=== PATIENT | male | born 1990 | race American Indian/Alaskan Native ===

== ENCOUNTER 2021-03-15 15:25 | Emergency (ER) | payer SELFPAY ==
[2021-03-15] MEDS ORDERED: KETOROLAC 60 MG/2 ML INJ IM ONE (15:37)
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
[2021-03-15 15:39] VITALS: BP 120/98
[2021-03-15 16:43] LABS: Bilirubin,Urine NEG (Negative); Blood,Urine NEG (Negative); Color,Urine Yellow (Yellow); Protein,Urine <15 mg/dL mg/dL (Negative); Urobilinogen,Urine < 2.0 mg/dL (<2.0)
== END 2021-03-15 17:03 | disposition home or self-care (01) ==
LOC: ED 15:25
DX: M54.50 Low back pain, unspecified (principal); N39.0 Urinary tract infection, site not specified; Z98.890 Other specified postprocedural states
CPT/HCPCS: 81001; 96372; 99283; J1885